=== PATIENT | male | born 1930 | race Caucasian/White ===

== ENCOUNTER 2019-02-21 13:34 | Inpatient (IN) | payer MEDICARE, BC ==
[~2019-02-21] VITALS: Ht 177.8 cm; Wt 73.1 kg
[~2019-02-21 13:34] MED LIST: LISINOPRIL10 MG PO; PRAVACHOL40 MG PO; TENORMIN100 MG PO
[2019-02-21 13:35] VITALS: BP 151/53
[2019-02-21 14:55] LABS: BASO % 0.3 % (0.0-1.0); EOS # 0.1 10*3/uL (0.0-0.4); HEMATOCRIT 35.5 % (42.0-52.0); HEMOGLOBIN 11.5 g/dl (14.0-18.0); LYMPH # 1.7 10*3/uL (1.3-4.4); MEAN CELL VOLUME 98.6 fl (80.0-94.0); MEAN CORPUSCULAR HGB 31.9 pg (27.0-31.0); MEAN CORPUSCULAR HGB CONC 32.4 g/dl (33.0-37.0); MEAN PLATELET VOLUME 9.2 fl (9.6-12.3); MONO # 0.7 10*3/uL (0.1-1.0); MONO % 6.3 % (3.0-9.0); NEUT # 8.9 10*3/uL (2.3-7.9); PLATELET COUNT AUTOMATED 287 10*3/uL (130-400); RED CELL DISTRI WIDTH 12.5 % (0-14.5); WHITE BLOOD COUNT 11.5 10*3/uL (4.8-10.8)
[2019-02-21 15:19] LABS: ALBUMIN 3.2 gm/dl (3.1-4.5); ALKALINE PHOSPHATASE 63 U/L (45-117); BUN 19 mg/dl (7-24); CHLORIDE 106 mmol/L (98-107); CREATININE 0.89 mg/dL (0.70-1.30); POTASSIUM 3.8 mmol/L (3.5-5.1); SGOT/AST 14 IU/L (3-35); SGPT/ALT 16 U/L (12-78); SODIUM 138 mmol/L (136-145); TOTAL PROTEIN 7.2 gm/dL (6.4-8.2)
--- NOTE | 2019-02-21 17:23 | NUR ---
TRIED TO NOTIFY DR. MCCOY IN RE:CONSULT, WAS TOLD TO REACH HER IN THE MORNING, THERE IS NO COVERAGE UNTIL TOMORROW.
--- NOTE | 2019-02-21 17:27 | NUR ---
DR. ANDUJAR'S ANSWERING SERVING NOTIFIED OF CONSULT.
[2019-02-21 17:30] VITALS: BP 139/61
[2019-02-21] MEDS ORDERED: SINGULAIR10 M1 PO (17:31)
[2019-02-21] MEDS ORDERED: ZESTORETIC 20-1 EACH PO (17:32)
[2019-02-21 17:34] VITALS: BP 155/68
--- NOTE | 2019-02-21 17:57 | NUR ---
Time: 1729 A 81 year old MALE admitted to 4E under services of VICTORIANO BULLARD DO. Pt. arrived via stretcher from ER. Chief complaint: SORE RT. INDEX FINGER, presents with reddened , swollen and painful index finger. . AMEYA ALCALA
[2019-02-21 20:00] VITALS: BP 148/66
[2019-02-22] VITALS: BP 134/61
[2019-02-22 06:36] LABS: BASO % 0.4 % (0.0-1.0); EOS # 0.2 10*3/uL (0.0-0.4); EOS % 2.1 % (1.0-4.0); HEMATOCRIT 30.1 % (42.0-52.0); LYMPH # 1.8 10*3/uL (1.3-4.4); LYMPH % 19.7 % (27.0-41.0); MEAN CORPUSCULAR HGB 32.9 pg (27.0-31.0); MEAN CORPUSCULAR HGB CONC 33.2 g/dl (33.0-37.0); MEAN PLATELET VOLUME 9.2 fl (9.6-12.3); MONO # 0.7 10*3/uL (0.1-1.0); MONO % 7.8 % (3.0-9.0); NEUT # 6.5 10*3/uL (2.3-7.9); NEUT % 69.6 % (47.0-73.0); PLATELET COUNT AUTOMATED 221 10*3/uL (130-400); RED BLOOD COUNT 3.04 10*6/uL (4.50-5.90); RED CELL DISTRI WIDTH 12.7 % (0-14.5); WHITE BLOOD COUNT 9.3 10*3/uL (4.8-10.8)
[2019-02-22 06:45] LABS: BUN 15 mg/dl (7-24); CHLORIDE 110 mmol/L (98-107); CHOLESTEROL 119 mg/dL (<200); CREATININE 0.79 mg/dL (0.70-1.30); FREE T4 0.87 ng/dl (0.76-1.46); HDL CHOLESTEROL 39 mg/dl (40-60); LDL CHOLESTEROL 65 mg/dL (9-159); PHOSPHOROUS 2.9 mg/dL (2.5-4.9); POTASSIUM 3.4 mmol/L (3.5-5.1); SODIUM 141 mmol/L (136-145); TRIGLYCERIDES 73 mg/dl (<150); VLDL CHOLESTEROL 15 mg/dL (6-40)
[2019-02-22 06:57] LABS: ACT PARTIAL THROMBO TIME 27.3 SECONDS (20.0-32.1); INTERNATIONAL NORM RATIO 0.9 (2.0-3.5)
[2019-02-22 07:21] LABS: VITAMIN D, 25-HYDROXY 41.5 ng/mL (30-100)
[2019-02-22 07:46] VITALS: BP 142/72
--- NOTE | 2019-02-22 09:00 | NUR ---
Clinical Academic Allergist in to talk to patient. Patient states lives at home with alone. There are few steps in the home. Physician: ophelia zeng Pharmacy: [facility] Home health services: none Patient's level of ADLs: INDEPENDENT Patient has working utilities: all working DME: none Follow-up physician's appointment after d/c: will be made by hospitalist nurse director upon discharge Does patient want to access PORTAL?: no Discharge plan discussed with patient, he states he lives at home alone, is very independent in adls and ambulation, drives, recently painted his home, he states he will return home when able, discussed with him possibly discharge needs and stated his step-daughter is on her way from [place] and she will help him make any discharge decisions, case management will follow. LYNDA BEJARANO
[2019-02-22 12:00] VITALS: BP 131/66
[2019-02-22 16:00] VITALS: BP 123/63
[2019-02-22 20:00] VITALS: BP 129/63
[2019-02-23] VITALS: BP 125/60
[2019-02-23 07:08] LABS: BUN 19 mg/dl (7-24); CHLORIDE 111 mmol/L (98-107); CREATININE 0.83 mg/dL (0.70-1.30); POTASSIUM 3.6 mmol/L (3.5-5.1); SODIUM 142 mmol/L (136-145)
[2019-02-23 07:16] LABS: BASO % 0.5 % (0.0-1.0); EOS # 0.2 10*3/uL (0.0-0.4); EOS % 3.2 % (1.0-4.0); HEMATOCRIT 30.7 % (42.0-52.0); HEMOGLOBIN 9.9 g/dl (14.0-18.0); LYMPH # 2.2 10*3/uL (1.3-4.4); MEAN CELL VOLUME 100.7 fl (80.0-94.0); MEAN CORPUSCULAR HGB 32.5 pg (27.0-31.0); MEAN CORPUSCULAR HGB CONC 32.2 g/dl (33.0-37.0); MEAN PLATELET VOLUME 9.6 fl (9.6-12.3); MONO # 0.6 10*3/uL (0.1-1.0); MONO % 7.6 % (3.0-9.0); NEUT # 4.4 10*3/uL (2.3-7.9); NEUT % 59.3 % (47.0-73.0); PLATELET COUNT AUTOMATED 250 10*3/uL (130-400); RED BLOOD COUNT 3.05 10*6/uL (4.50-5.90); RED CELL DISTRI WIDTH 12.7 % (0-14.5); WHITE BLOOD COUNT 7.4 10*3/uL (4.8-10.8)
[2019-02-23 08:00] VITALS: BP 143/55
--- NOTE | 2019-02-23 08:23 | NUR ---
PER PATIENT AND DAUGHTER IN LAW THEY DO NOT WANT TO PROCEED WITH THE SURGERY AND THEY ARE 100% SURE. SURGERY NOTIFIED, DR MCCOY'S OFFICE NOTIFIED AND DR MATTHEW NOTIFIED.
--- NOTE | 2019-02-23 09:00 | NUR ---
case management visits with patient, daughter present, dicussed with them if patient would need iv antibiotics upon discharge if he would consider a short term intermediate, he and daughter refused a SNF, also discussed with them either home iv antibiotics or coming back to the hospital as an outpatient to receive iv antbiotics, educated them that case management will check on cost of iv antibiotics when choice of antibiotics have been decided, daughter and patient also discussed patient's surgery, educated them on the benefit of the surgery and consequences if he didn't have the surgery, daughter is a retired nurse and verbalized understanding of the surgery, case management will follow
[2019-02-23] MEDS ORDERED: OMEGA 3 1,0001 EACH PO (11:52)
[2019-02-23] MEDS ORDERED: VITAMIN B-121000 MC2 PO (11:52)
[2019-02-23 12:00] VITALS: BP 128/60
--- NOTE | 2019-02-23 14:20 | NUR ---
PT STATED TO ME THAT WHEN THE [id number] WAS NOT IN THE ROOM THAT HE WISHES HE WOULD HAVE JUST DONE THE SURGERY. THEN THE AIDE TOLD ME THAT HE TOLD HER THE SAME THING. DR URIOSTEGUI MADE AWARE.
--- NOTE | 2019-02-23 14:38 | NUR ---
case management and Dr Pink spoke to patient and daughter regarding making a decision regarding patient's surgery, Dr Pink spoke specificially to patient and advised him that having the surgery to his finger was the patient's choice, patient and daughter were also educated that in order to administer the correct antibiotics surgical intervention had to be done with cultures, patient again declined, seeming unsure of his decision, again educated him and asked about the surgery, he declined the surgery at this time, case managmilly contacted Dawna at [employer] to check the cost of vancomycin and cefepime for administration at home,
[2019-02-23 16:00] VITALS: BP 132/64
[2019-02-23 20:00] VITALS: BP 135/65
--- NOTE | 2019-02-23 21:57 | NUR ---
PATIENT LAYING IN BED, WATCHING TV. RESPIRATIONS EASY, NON LABORED. VOICES NO COMPLAINTS AT THIS TIME. BED IN LOWEST POSITION, CALL LIGHT WITHIN REACH. WILL CONTINUE TO MONITOR.
[2019-02-24] VITALS: BP 173/76
[2019-02-24 06:34] LABS: BASO % 0.5 % (0.0-1.0); EOS # 0.3 10*3/uL (0.0-0.4); EOS % 3.8 % (1.0-4.0); HEMATOCRIT 34.3 % (42.0-52.0); HEMOGLOBIN 11.2 g/dl (14.0-18.0); LYMPH # 2.6 10*3/uL (1.3-4.4); LYMPH % 34.6 % (27.0-41.0); MEAN CELL VOLUME 100.6 fl (80.0-94.0); MEAN CORPUSCULAR HGB 32.8 pg (27.0-31.0); MEAN CORPUSCULAR HGB CONC 32.7 g/dl (33.0-37.0); MEAN PLATELET VOLUME 9.1 fl (9.6-12.3); MONO # 0.5 10*3/uL (0.1-1.0); MONO % 6.8 % (3.0-9.0); NEUT % 53.8 % (47.0-73.0); PLATELET COUNT AUTOMATED 274 10*3/uL (130-400); RED BLOOD COUNT 3.41 10*6/uL (4.50-5.90); RED CELL DISTRI WIDTH 12.7 % (0-14.5); WHITE BLOOD COUNT 7.4 10*3/uL (4.8-10.8)
[2019-02-24 06:46] LABS: BUN 13 mg/dl (7-24); CHLORIDE 110 mmol/L (98-107); CREATININE 0.87 mg/dL (0.70-1.30); POTASSIUM 3.5 mmol/L (3.5-5.1); SODIUM 141 mmol/L (136-145)
[2019-02-24 08:00] VITALS: BP 138/62
--- NOTE | 2019-02-24 09:00 | NUR ---
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 all of her and patient's questions were answered. also educated both of them that case management received a call from Dawna at [employer], Dawna stated patient has not met any of his medications deductible and the first week of home iv antibiotics would be $500 for the cefapime and $20 a day for supplies, she states the vancomycin will be around #200 a week but is unable to check at this time, daughter and patient stated they were unable to afford this, also discussed him returning to the hosptial as an outpatient to received these medications, patient was agreeable to this, case managment will arrange when patient is discharged
[2019-02-24 12:00] VITALS: BP 132/49
[2019-02-24] MEDS ORDERED: ERTAPENEM1 GM IM (14:32)
[2019-02-24] MEDS ORDERED: CUBICIN500 MG IV (14:32)
--- NOTE | 2019-02-24 14:59 | NUR ---
case management visits with patient and daughter, talked to central scheduling and patient is scheduled to come back to the hospital at 10am starting tomorrow for a total of 38 days, informed patient and daughter, also faxed scripts to central scheduling and also pharmacy
--- NOTE | 2019-02-24 15:58 | NUR ---
[facility] Discharge instructions reviewed with patient/family. Patient receptive and verbalizes understanding. Follow-up care arranged. Written instructions given to patient/family. HONG KENDRICK
== END 2019-02-24 15:58 | disposition home or self-care (01) | DRG 540 ==
LOC: ED 13:34 → EDHOLD 16:35 → 4E 16:35
PROVIDERS: Internal Medicine; Nurse Practitioner Family; ADMIT Family Medicine
PROC: 02HV33Z Insertion of Infusion Device into Superior Vena Cava, Percutaneous Approach (ICD-10-PCS; principal; 2019-02-24)
DX: M86.8X4 Other osteomyelitis, hand (principal); M84.641A Pathological fracture in other disease, right hand, initial encounter for fracture; E44.1 Mild protein-calorie malnutrition; R00.1 Bradycardia, unspecified; D53.9 Nutritional anemia, unspecified; R73.9 Hyperglycemia, unspecified; L98.499 Non-pressure chronic ulcer of skin of other sites with unspecified severity; I10 Essential (primary) hypertension; E78.5 Hyperlipidemia, unspecified; I45.10 Unspecified right bundle-branch block; Z90.49 Acquired absence of other specified parts of digestive tract; Z85.46 Personal history of malignant neoplasm of prostate; Z82.49 Family history of ischemic heart disease and other diseases of the circulatory system; Z83.6 Family history of other diseases of the respiratory system; Z79.899 Other long term (current) drug therapy; Z68.22 Body mass index [BMI] 22.0-22.9, adult

== ENCOUNTER 2020-03-12 16:09 | Inpatient (IN) | payer MEDICARE, BC ==
[~2020-03-12] VITALS: Ht 180.3 cm; Wt 69.6 kg
[~2020-03-12 16:09] MED LIST changes: +CUBICIN500 MG IV; +ERTAPENEM1 GM IM; +OMEGA 3 1,0001 EACH PO; +SINGULAIR10 M1 PO; +VITAMIN B-121000 MC2 PO; +ZESTORETIC 20-1 EACH PO
[2020-03-12 16:43] VITALS: BP 124/85
[2020-03-12 18:38] LABS: BASO % 0.3 % (0.0-1.0); EOS % 0.4 % (1.0-4.0); HEMATOCRIT 38.8 % (42.0-52.0); LYMPH # 1.4 10*3/uL (1.3-4.4); LYMPH % 15.1 % (27.0-41.0); MEAN CELL VOLUME 95.8 fl (80.0-94.0); MEAN CORPUSCULAR HGB 30.9 pg (27.0-31.0); MEAN CORPUSCULAR HGB CONC 32.2 g/dl (33.0-37.0); MONO # 0.7 10*3/uL (0.1-1.0); NEUT # 6.9 10*3/uL (2.3-7.9); NEUT % 75.3 % (47.0-73.0); PLATELET COUNT AUTOMATED 365 10*3/uL (130-400); RED BLOOD COUNT 4.05 10*6/uL (4.50-5.90); RED CELL DISTRI WIDTH 12.4 % (0-14.5); WHITE BLOOD COUNT 9.1 10*3/uL (4.8-10.8)
[2020-03-12 18:57] LABS: ALBUMIN 2.8 gm/dl (3.1-4.5); CREATININE 1.87 mg/dL (0.70-1.30); POTASSIUM 3.7 mmol/L (3.5-5.1); TOTAL PROTEIN 7.4 gm/dL (6.4-8.2)
[2020-03-12 19:06] LABS: BILIRUBIN Negative (Negative); BLOOD Negative (Negative); CLARITY Clear (Clear); COLOR Yellow (Yellow); GLUCOSE Negative (Negative); KETONE Trace (Negative); LEUKO ESTERASE Trace (Negative); NITRITE Negative (Negative)
[2020-03-12 19:09] LABS: TROPONIN I 0.132 ng/ml (<0.045)
[2020-03-12 19:15] LABS: RBC 0-2 rbc/hpf (0-2)
[2020-03-12 19:16] LABS: BACTERIA TRACE; MUCOUS 1+
[2020-03-13] VITALS (10 sets, daily range): BP systolic 90–148; BP diastolic 6–82
[2020-03-13 03:20] LABS: BASO % 0.3 % (0.0-1.0); EOS % 0.4 % (1.0-4.0); HEMATOCRIT 37.6 % (42.0-52.0); LYMPH # 1.5 10*3/uL (1.3-4.4); LYMPH % 16.1 % (27.0-41.0); MEAN CELL VOLUME 96.9 fl (80.0-94.0); MEAN CORPUSCULAR HGB 31.2 pg (27.0-31.0); MEAN CORPUSCULAR HGB CONC 32.2 g/dl (33.0-37.0); MEAN PLATELET VOLUME 9.3 fl (9.6-12.3); MONO # 0.8 10*3/uL (0.1-1.0); MONO % 8.3 % (3.0-9.0); NEUT # 6.6 10*3/uL (2.3-7.9); PLATELET COUNT AUTOMATED 359 10*3/uL (130-400); RED BLOOD COUNT 3.88 10*6/uL (4.50-5.90); RED CELL DISTRI WIDTH 12.3 % (0-14.5)
[2020-03-13 03:32] LABS: CREATININE 1.44 mg/dL (0.70-1.30); POTASSIUM 3.6 mmol/L (3.5-5.1)
[2020-03-13 03:36] LABS: ACT PARTIAL THROMBO TIME 25.1 SECONDS (20.0-32.1)
[2020-03-13] MEDS ORDERED: PRAVACHOL40 MG PO (19:14)
[2020-03-13] MEDS ORDERED: ATENOLOL50 M1 PO (19:16)
[2020-03-13] MEDS ORDERED: VITAMIN D325 MC1 PO (19:18)
[2020-03-13] MEDS ORDERED: CYANOCOBALAMIN PO (19:23)
[2020-03-13] MEDS ORDERED: FOLIC ACID PO (19:23)
[2020-03-14] VITALS: BP 106/59
[2020-03-14 04:00] VITALS: BP 124/78
[2020-03-14 06:34] LABS: BASO % 0.3 % (0.0-1.0); EOS # 0.1 10*3/uL (0.0-0.4); EOS % 0.6 % (1.0-4.0); HEMATOCRIT 37.7 % (42.0-52.0); LYMPH # 1.4 10*3/uL (1.3-4.4); LYMPH % 13.2 % (27.0-41.0); MEAN CELL VOLUME 96.2 fl (80.0-94.0); MEAN CORPUSCULAR HGB 31.4 pg (27.0-31.0); MEAN CORPUSCULAR HGB CONC 32.6 g/dl (33.0-37.0); MEAN PLATELET VOLUME 9.3 fl (9.6-12.3); MONO % 9.3 % (3.0-9.0); NEUT % 75.8 % (47.0-73.0); PLATELET COUNT AUTOMATED 350 10*3/uL (130-400); RED BLOOD COUNT 3.92 10*6/uL (4.50-5.90); RED CELL DISTRI WIDTH 12.4 % (0-14.5); WHITE BLOOD COUNT 10.6 10*3/uL (4.8-10.8)
[2020-03-14 06:59] LABS: ALBUMIN 2.7 gm/dl (3.1-4.5); ALKALINE PHOSPHATASE 60 U/L (45-117); CHLORIDE 108 mmol/L (98-107); CREATININE 1.05 mg/dL (0.70-1.30); POTASSIUM 3.4 mmol/L (3.5-5.1); SGOT/AST 11 IU/L (3-35); SGPT/ALT 12 U/L (12-78); SODIUM 141 mmol/L (136-145); TOTAL PROTEIN 6.6 gm/dL (6.4-8.2)
[2020-03-14 07:05] LABS: BUN 60 mg/dl (7-24)
[2020-03-14 08:00] VITALS: BP 117/68
[2020-03-14 12:00] VITALS: BP 131/65
[2020-03-14 16:00] VITALS: BP 132/55
[2020-03-14 20:00] VITALS: BP 127/69
[2020-03-15] VITALS: BP 131/78
[2020-03-15 07:52] LABS: BASO % 0.2 % (0.0-1.0); EOS # 0.1 10*3/uL (0.0-0.4); EOS % 0.6 % (1.0-4.0); HEMATOCRIT 35.2 % (42.0-52.0); LYMPH # 1.2 10*3/uL (1.3-4.4); LYMPH % 10.9 % (27.0-41.0); MEAN CELL VOLUME 98.1 fl (80.0-94.0); MEAN CORPUSCULAR HGB 31.5 pg (27.0-31.0); MEAN CORPUSCULAR HGB CONC 32.1 g/dl (33.0-37.0); MEAN PLATELET VOLUME 9.6 fl (9.6-12.3); NEUT # 8.5 10*3/uL (2.3-7.9); NEUT % 78.7 % (47.0-73.0); PLATELET COUNT AUTOMATED 326 10*3/uL (130-400); RED BLOOD COUNT 3.59 10*6/uL (4.50-5.90); RED CELL DISTRI WIDTH 12.3 % (0-14.5); WHITE BLOOD COUNT 10.8 10*3/uL (4.8-10.8)
[2020-03-15 08:00] VITALS: BP 131/78
[2020-03-15 08:12] LABS: CHLORIDE 112 mmol/L (98-107); CREATININE 0.83 mg/dL (0.70-1.30); POTASSIUM 3.4 mmol/L (3.5-5.1); SODIUM 145 mmol/L (136-145)
[2020-03-15 08:32] LABS: BUN 38 mg/dl (7-24)
[2020-03-15 12:00] VITALS: BP 141/69
[2020-03-15 16:00] VITALS: BP 147/58
[2020-03-15 20:00] VITALS: BP 135/72
[2020-03-16] VITALS: BP 125/65
[2020-03-16 07:23] LABS: CHLORIDE 112 mmol/L (98-107); CREATININE 0.74 mg/dL (0.70-1.30); POTASSIUM 3.2 mmol/L (3.5-5.1); SODIUM 144 mmol/L (136-145)
[2020-03-16 07:24] LABS: BUN 27 mg/dl (7-24)
[2020-03-16 08:00] VITALS: BP 118/77
[2020-03-16 12:00] VITALS: BP 130/68
[2020-03-16 16:00] VITALS: BP 118/68
[2020-03-16 20:00] VITALS: BP 142/85
[2020-03-17] VITALS: BP 140/74
[2020-03-17 06:39] LABS: BASO # 0.1 10*3/uL (0.0-0.1); BASO % 0.4 % (0.0-1.0); EOS % 0.2 % (1.0-4.0); HEMATOCRIT 37.9 % (42.0-52.0); LYMPH # 1.3 10*3/uL (1.3-4.4); LYMPH % 10.2 % (27.0-41.0); MEAN CELL VOLUME 97.9 fl (80.0-94.0); MEAN CORPUSCULAR HGB 30.7 pg (27.0-31.0); MEAN CORPUSCULAR HGB CONC 31.4 g/dl (33.0-37.0); MEAN PLATELET VOLUME 9.8 fl (9.6-12.3); MONO % 8.3 % (3.0-9.0); NEUT # 9.8 10*3/uL (2.3-7.9); NEUT % 80.2 % (47.0-73.0); PLATELET COUNT AUTOMATED 377 10*3/uL (130-400); RED BLOOD COUNT 3.87 10*6/uL (4.50-5.90); RED CELL DISTRI WIDTH 12.3 % (0-14.5); WHITE BLOOD COUNT 12.2 10*3/uL (4.8-10.8)
[2020-03-17 07:05] LABS: BUN 23 mg/dl (7-24); CHLORIDE 113 mmol/L (98-107); CREATININE 0.72 mg/dL (0.70-1.30); POTASSIUM 3.5 mmol/L (3.5-5.1); SODIUM 144 mmol/L (136-145)
[2020-03-17 08:00] VITALS: BP 138/73
[2020-03-17 12:00] VITALS: BP 134/80
== END 2020-03-17 15:55 | disposition short-term general hospital (02) | DRG 388 ==
LOC: ED 16:09 → 5E 22:28 → EDHOLD 22:28 → 5E 03-13 14:36
PROVIDERS: Family Medicine; Internal Medicine; Nurse Practitioner; ADMIT Internal Medicine; ATTEND Internal Medicine
PROC: 0D9670Z Drainage of Stomach with Drainage Device, Via Natural or Artificial Opening (ICD-10-PCS; principal; 2020-03-12)
DX: K56.600 Partial intestinal obstruction, unspecified as to cause (principal); N17.0 Acute kidney failure with tubular necrosis; E44.0 Moderate protein-calorie malnutrition; I24.8 Other forms of acute ischemic heart disease; I15.2 Hypertension secondary to endocrine disorders; D53.9 Nutritional anemia, unspecified; R73.9 Hyperglycemia, unspecified; E83.41 Hypermagnesemia; I10 Essential (primary) hypertension; E86.0 Dehydration; E78.5 Hyperlipidemia, unspecified; I45.10 Unspecified right bundle-branch block; Z90.49 Acquired absence of other specified parts of digestive tract; Z82.49 Family history of ischemic heart disease and other diseases of the circulatory system; Z79.899 Other long term (current) drug therapy; Z68.21 Body mass index [BMI] 21.0-21.9, adult